=== PATIENT | male | born 1985 | race Hispanic/Latino ===

== ENCOUNTER 2023-06-18 18:24 | Inpatient (IN) | payer OTHER ==
[~2023-06-18] VITALS: Ht 167.6 cm; Wt 83.2 kg
[2023-06-18 19:14] LABS: BASOPHILS # (AUTO) 0.04 K/uL (0.00-0.20); BASOPHILS % (AUTO) 0.4 % (0.0-5.0); EOSINOPHILS # (AUTO) 0.09 K/uL (0.00-0.70); EOSINOPHILS % (AUTO) 0.9 % (0.0-8.0); HEMATOCRIT 44.4 % (42-54); IMMATURE GRANULOCYTE ABSOLUTE 0.03 K/uL (0-1); LYMPHOCYTES # (AUTO) 1.7 K/uL (1.0-4.8); LYMPHOCYTES % (AUTO) 17.2 % (21.0-51.0); MEAN CORPUSCULAR HEMOGLOBIN 29.2 pg (27.0-33.0); MEAN CORPUSCULAR HGB CONC 34.2 g/dL (32.0-36.0); MEAN CORPUSCULAR VOLUME 85.4 fL (79-99); MONOCYTES # (AUTO) 0.8 K/uL (0.1-1.0); MONOCYTES % (AUTO) 7.8 % (3.0-13.0); NEUTROPHILS # (AUTO) 7.3 K/uL (1.8-7.7); NEUTROPHILS % (AUTO) 73.4 % (40.0-77.0); PLATELET COUNT (AUTO) 245 K/uL (130-400); RED CELL DISTRIBUTION WIDTH 12.6 % (11.0-15.5)
[2023-06-18] MEDS: 0.9%NACL 1000ML 1,000 ML IV ONE (19:15)
[2023-06-18] MEDS: KETOROLAC 30MG VIAL (30MG/ML) IVP ONE (19:15)
[2023-06-18 19:43] LABS: POTASSIUM 3.7 mmol/L (3.5-5.1)
[2023-06-18 19:48] LABS: BILIRUBIN,TOTAL 0.9 mg/dL (0.2-1.0); TOTAL PROTEIN, SERUM 8.2 g/dL (6.0-8.3)
[2023-06-18 20:30] LABS: APPEARANCE,URINE CLEAR (CLEAR); BILIRUBIN,URINE NEGATIVE (NEGATIVE); COLOR,URINE LIGHT-YELLOW (YELLOW); GLUCOSE, URINE (UA) NEGATIVE (NEGATIVE); KETONES,URINE NEGATIVE (NEGATIVE); LEUKOCYTE ESTERASE ,URINE 75 Leu/uL (NEGATIVE); NITRATE,URINE NEGATIVE (NEGATIVE); OCCULT BLOOD,URINE SMALL (NEGATIVE); PH,URINE 6.5 (5.0-8.0); PROTEIN,URINE NEGATIVE (NEGATIVE); UROBILINOGEN,URINE 0.2 mg/dL (0.2-1.0)
[2023-06-18] MEDS: ZOSYN 3.375GM +NS 50ML IVPB ONE (20:31)
[2023-06-18 20:32] LABS: ADD UA MICROSCOPIC YES
[2023-06-18 20:37] LABS: MUCUS,URINE RARE LPF (None Seen)
[2023-06-18] MEDS: ZOSYN 3.375GM+NS 50ML 50 ML IV SCH (20:42)
[2023-06-18] MEDS: LACTATED RINGERS 1000ML 1,000 ML IV SCH (20:50)
[2023-06-18] MEDS: FAMOTIDINE 20MG VIAL IV SCH (20:50)
[2023-06-18] MEDS ORDERED: MAGNESIUM 2GM PREMIX 50ML 50 ML IV PRN (21:00)
[2023-06-18] MEDS ORDERED: MORPHINE 2 MG SYG IV PRN (21:00)
[2023-06-18] MEDS ORDERED: ONDANSETRON 4MG INJ IV PRN (21:00)
[2023-06-18] MEDS ORDERED: MORPHINE 4 MG SYG IV PRN (21:00)
[2023-06-18] MEDS ORDERED: POTASSIUM CHLORIDE 20MEQ/100ML 100 ML IV PRN (21:00)
[2023-06-18] MEDS ORDERED: ACETAMINOPHEN 325 MG TAB PO PRN ×2 (21:00)
[2023-06-18 23:07] VITALS: BP 126/79; PULSE 78; RESP 19
[2023-06-19] VITALS (27 sets, daily range): BP systolic 99–139; BP diastolic 56–85; PULSE 66–89; RESP 15–20; O2SAT 95
[2023-06-19 05:08] LABS: BASOPHILS # (AUTO) 0.02 K/uL (0.00-0.20); BASOPHILS % (AUTO) 0.3 % (0.0-5.0); EOSINOPHILS # (AUTO) 0.12 K/uL (0.00-0.70); HEMATOCRIT 42.7 % (42-54); IMMATURE GRANULOCYTE ABSOLUTE 0.01 K/uL (0-1); LYMPHOCYTES # (AUTO) 1.7 K/uL (1.0-4.8); LYMPHOCYTES % (AUTO) 28.1 % (21.0-51.0); MEAN CORPUSCULAR HEMOGLOBIN 29.3 pg (27.0-33.0); MEAN CORPUSCULAR HGB CONC 32.8 g/dL (32.0-36.0); MEAN CORPUSCULAR VOLUME 89.3 fL (79-99); MONOCYTES # (AUTO) 0.6 K/uL (0.1-1.0); MONOCYTES % (AUTO) 9.5 % (3.0-13.0); NEUTROPHILS # (AUTO) 3.6 K/uL (1.8-7.7); NEUTROPHILS % (AUTO) 59.9 % (40.0-77.0); PLATELET COUNT (AUTO) 194 K/uL (130-400); RED BLOOD CELL COUNT(AUTO) 4.78 MIL/uL (4.50-6.20); RED CELL DISTRIBUTION WIDTH 12.5 % (11.0-15.5)
[2023-06-19 05:20] LABS: INR <= 0.93 (0.85-1.15); PROTHROMBIN TIME 10.6 SEC (9.6-11.6)
[2023-06-19 05:22] LABS: PARTIAL THROMBOPLASTIN TIME 29.6 SEC (26.3-35.5)
[2023-06-19 05:24] LABS: MAGNESIUM 2.1 mg/dL (1.80-2.40); PHOSPHORUS 3.8 mg/dL (2.5-4.9)
[2023-06-19] MEDS ORDERED: LIDOCAINE HCL 1% 20 ML VIAL ONE (08:59)
[2023-06-19] MEDS ORDERED: CEFAZOLIN SODIUM 1 GM VIAL ONE (08:59)
[2023-06-19] MEDS ORDERED: BUPIVACAINE/PF 0.25% 30ML VIAL IJ ONE (09:00)
[2023-06-19] MEDS ORDERED: ONDANSETRON 4MG INJ ONE (09:13)
[2023-06-19] MEDS ORDERED: GLYCOPYRROLATE 0.2 MG/ML 5 ML VIAL ONE (09:13)
[2023-06-19] MEDS ORDERED: SUCCINYLCHOLINE CHLORIDE 20 MG/ML 10 ML VIAL ONE (09:13)
[2023-06-19] MEDS ORDERED: LIDOCAINE PF 100MG/5ML (2%) SYRINGE 5ML ONE ×2 (09:13→10:06)
[2023-06-19] MEDS ORDERED: PROPOFOL 10 MG/ML 20ML VIAL IV ONE (09:14)
[2023-06-19] MEDS ORDERED: FENTANYL CITRATE PF 50 MCG/1 ML 2ML VIAL ONE (09:14)
[2023-06-19] MEDS ORDERED: MIDAZOLAM HCL 1 MG/ML 2ML VIAL ONE (09:14)
[2023-06-19] MEDS ORDERED: NEOSTIGMINE METHYLSULFATE 1MG/ML IV ONE (09:14)
[2023-06-19] MEDS ORDERED: ROCURONIUM BROMIDE 10MG/1ML 5ML VL ONE (09:14)
[2023-06-19] MEDS: LACTATED RINGERS 1000ML 1,000 ML IV ONE (09:32)
[2023-06-19] MEDS: CEFAZOLIN SODIUM 1 GM VIAL IRRIG ONE (09:40)
[2023-06-19] MEDS ORDERED: MEPERIDINE-PF 25 MG/ML SYG ONE (09:50)
[2023-06-19] MEDS: BUPIVACAINE/PF 0.25% 30ML VIAL IJ ONE (10:07)
[2023-06-19] MEDS: LIDOCAINE HCL 1% 20 ML VIAL INJ ONE (10:07)
[2023-06-19] MEDS ORDERED: LIDOCAINE HCL 4% LTA SOL 4 ML VIAL ONE (10:18)
[2023-06-19] MEDS ORDERED: LIDOCAINE HCL-MPF 2% 10ML AMP IJ ONE (10:18)
[2023-06-19] MEDS: MEPERIDINE-PF 25 MG/ML SYG ONE ×2 (10:40→10:53)
[2023-06-19] MEDS: OXYCODONE/ACETAMIN 5/325MG TAB PO PRN (13:15)
[2023-06-19] MEDS: HYDROMORPHONE 1 MG INJ IVP PRN (22:50)
[2023-06-20] VITALS (8 sets, daily range): BP systolic 97–127; BP diastolic 57–79; PULSE 63–84; RESP 18–20; O2SAT 95–96
[2023-06-20 05:26] LABS: BASOPHILS # (AUTO) 0.02 K/uL (0.00-0.20); BASOPHILS % (AUTO) 0.3 % (0.0-5.0); EOSINOPHILS # (AUTO) 0.11 K/uL (0.00-0.70); EOSINOPHILS % (AUTO) 1.6 % (0.0-8.0); HEMATOCRIT 43.3 % (42-54); IMMATURE GRANULOCYTE ABSOLUTE 0.02 K/uL (0-1); LYMPHOCYTES # (AUTO) 1.2 K/uL (1.0-4.8); LYMPHOCYTES % (AUTO) 18.1 % (21.0-51.0); MEAN CORPUSCULAR HEMOGLOBIN 29.3 pg (27.0-33.0); MEAN CORPUSCULAR HGB CONC 33.9 g/dL (32.0-36.0); MEAN CORPUSCULAR VOLUME 86.4 fL (79-99); MONOCYTES # (AUTO) 0.5 K/uL (0.1-1.0); MONOCYTES % (AUTO) 7.2 % (3.0-13.0); NEUTROPHILS # (AUTO) 4.8 K/uL (1.8-7.7); NEUTROPHILS % (AUTO) 72.5 % (40.0-77.0); PLATELET COUNT (AUTO) 225 K/uL (130-400); RED BLOOD CELL COUNT(AUTO) 5.01 MIL/uL (4.50-6.20); RED CELL DISTRIBUTION WIDTH 12.7 % (11.0-15.5); WHITE BLOOD COUNT (AUTO) 6.7 K/uL (4.8-10.8)
[2023-06-20 05:40] LABS: ALBUMIN 3.2 g/dL (3.5-5.0); BILIRUBIN,TOTAL 1.1 mg/dL (0.2-1.0); CREATININE 1.1 mg/dL (0.5-1.5); MAGNESIUM 2.3 mg/dL (1.80-2.40); POTASSIUM 4.1 mmol/L (3.5-5.1)
[2023-06-20] MEDS: LACTULOSE 20 GM/30 ML UDCUP PO PRN (14:11)
[2023-06-21 04:00] VITALS: BP 116/73; PULSE 72; RESP 19
[2023-06-21 07:56] VITALS: BP 112/76; PULSE 65; RESP 18
[2023-06-21 09:30] VITALS: O2SAT 96
== END 2023-06-21 13:15 | disposition home or self-care (01) | DRG 398 ==
LOC: EDH 18:24 → EDHIP 18:25 → 3DH 22:06
PROVIDERS: ADMIT Internal Medicine; ATTEND Internal Medicine
PROC: 0DTJ4ZZ Resection of Appendix, Percutaneous Endoscopic Approach (ICD-10-PCS; principal; 2023-06-19 09:13)
PROC: 0WQF0ZZ Repair Abdominal Wall, Open Approach (ICD-10-PCS; 2023-06-19 09:13)
DX: K35.80 Unspecified acute appendicitis (principal); N39.0 Urinary tract infection, site not specified; K38.1 Appendicular concretions; K42.9 Umbilical hernia without obstruction or gangrene; Z51.5 Encounter for palliative care; Z59.7 Insufficient social insurance and welfare support; Z75.3 Unavailability and inaccessibility of health-care facilities
CPT/HCPCS: 36415; 71045; 74176; 80048; 80053; 81001; 83690; 83735; 84100; 85025; 85610; 85730; 86850; 86900; 86901; 87088; 88302; 88304; 93005; 96365; 96375; 99291; A4344; G0378; J0330; J0690; J1170; J1885; J2001; J2175; J2250; J2405; J2543; J2704; J2710; J3010; J3490; J7030; J7120; A4215; A4221; A4222; A4223; A4452; A4600; A4649; A4663; A4930; A5120; C1769; J0665